=== PATIENT | female | born 1990 | race Caucasian/White ===

== ENCOUNTER 2021-07-02 07:45 | Emergency (ER) | payer BC, MEDICAID ==
[~2021-07-02] VITALS: Ht 157.5 cm; Wt 56.7 kg
[2021-07-02 07:45] VITALS: BP_SYST 106
[2021-07-02] MEDS ORDERED: KETOROLAC TROMETHAMINE 30 MG VIAL IVP ONE (08:00)
[2021-07-02] MEDS ORDERED: ONDANSETRON HCL 4 MG/2 ML VIAL IVP ONE (08:00)
[2021-07-02] MEDS ORDERED: MORPHINE 4 MG INJ. 4 MG/ML VIAL IVP ONE (08:00)
[2021-07-02] MEDS ORDERED: NACL 0.9% 1,000 ML IV ONE (08:00)
[2021-07-02 08:06] LABS: BASOPHILS % (AUTO) 0.5 % (0.0-2.0); EOSINOPHILS # (AUTO) 0.3 K/uL (0.0-0.4); HEMOGLOBIN 11.4 g/dL (12.0-16.0); LYMPHOCYTES # (AUTO) 2.6 K/uL (1.0-5.5); LYMPHOCYTES % (AUTO) 29.2 % (20.5-51.5); MEAN CORPUSCULAR HEMOGLOBIN 30 pg (27-31); MEAN CORPUSCULAR HGB CONC 34 % (32-36); MEAN CORPUSCULAR VOLUME 86 fL (79.0-98.0); MONOCYTES # (AUTO) 0.5 K/uL (0.0-1.0); MONOCYTES % (AUTO) 5.8 % (1.7-9.3); NEUTROPHILS # (AUTO) 5.3 K/uL (1.8-7.7); NEUTROPHILS % (AUTO) 60.5 % (40.0-70.0); PLATELET COUNT (AUTO) 234 K/uL (130-430); RED BLOOD CELL COUNT(AUTO) 3.85 MIL/uL (4.2-6.2); RED CELL DISTRIBUTION WIDTH 14.4 % (9.0-15.0); WHITE BLOOD COUNT (AUTO) 8.8 K/uL (4.8-10.8)
[2021-07-02 08:42] LABS: CREATININE 0.78 mg/dL (0.55-1.30); POTASSIUM 3.2 mmol/L (3.5-5.1)
[2021-07-02 08:53] LABS: ALBUMIN 3.8 g/dL (3.4-4.8); TOTAL BILIRUBIN 0.8 mg/dL (0.0-1.0)
[2021-07-02 10:51] LABS: BILIRUBIN,URINE NEGATIVE (NEGATIVE); BLOOD, URINE 3+ (NEGATIVE); CLARITY/URINE SL CLOUDY (CLEAR); COLOR,URINE YELLOW (YELLOW); GLUCOSE,URINE NEGATIVE (NEGATIVE); KETONES,URINE TRACE (NEGATIVE); LEUKOCYTE ESTERASE ,URINE 1+ (NEGATIVE); NITRITE, URINE POSITIVE (NEGATIVE); PH,URINE 5.5 (5.0-8.0); PROTEIN URINE TRACE (NEGATIVE); UROBILINOGEN,URINE 0.2 (0.2-1.0)
[2021-07-02 11:20] LABS: BACTERIA,URINE MANY /HPF (None Seen); MUCUS,URINE 1+ /LPF (None Seen); WBC,URINE 20-50 /HPF (0-3)
[2021-07-02] MEDS ORDERED: CEPH250C PO (11:20)
[2021-07-02] MEDS ORDERED: cephALEXin 500 MG CAPSULE PO ONE (11:30)
[2021-07-02 11:34] VITALS: BP_SYST 106
[2021-07-04 04:06] LABS: CHLAMYDIA TRACHOMATIS NAA Negative (Negative); NEISSERIA GONORRHOEAE NAA Negative (Negative)
== END 2021-07-02 11:35 | disposition home or self-care (01) ==
LOC: SED 07:45
DX: N39.0 Urinary tract infection, site not specified (principal); R10.31 Right lower quadrant pain; J45.909 Unspecified asthma, uncomplicated; Z79.899 Other long term (current) drug therapy
CPT/HCPCS: 36415; 74177; 76376; 80053; 81000; 81025; 83690; 84702; 85025; 87086; 87491; 87591; 96361; 96374; 96375; 99285; J1885; J2270; J2405; J7030; Q9967

== ENCOUNTER 2024-01-14 03:07 | Emergency (ER) | payer MEDICAID ==
[~2024-01-14] VITALS: Ht 160 cm; Wt 59.0 kg
[~2024-01-14 03:07] MED LIST: CEPH250C PO
[2024-01-14 03:10] VITALS: BP_SYST 145; PULSE 91; RESP 19; TEMP 98.2; O2SAT 100
[2024-01-14] MEDS: MORPHINE 2 MG/ML INJ. SYRINGE IVP ONE (04:10)
[2024-01-14 04:14] LABS: BASOPHILS # (AUTO) 0.1 K/uL (0.0-0.2); BASOPHILS % (AUTO) 0.6 % (0.0-2.0); EOSINOPHILS # (AUTO) 0.4 K/uL (0.0-0.4); EOSINOPHILS % (AUTO) 4.2 % (0.0-4.0); HEMATOCRIT 37.7 % (36-48); HEMOGLOBIN 12.6 g/dL (12.0-16.0); LYMPHOCYTES # (AUTO) 4.7 K/uL (1.0-5.5); LYMPHOCYTES % (AUTO) 47.4 % (20.5-51.5); MEAN CORPUSCULAR HEMOGLOBIN 29 pg (27-31); MEAN CORPUSCULAR HGB CONC 33 % (32-36); MEAN CORPUSCULAR VOLUME 87 fL (79.0-98.0); MONOCYTES # (AUTO) 0.6 K/uL (0.0-1.0); MONOCYTES % (AUTO) 6.4 % (1.7-9.3); NEUTROPHILS # (AUTO) 4.1 K/uL (1.8-7.7); NEUTROPHILS % (AUTO) 41.4 % (40.0-70.0); PLATELET COUNT (AUTO) 300 K/uL (130-430); RED BLOOD CELL COUNT(AUTO) 4.35 MIL/uL (4.2-6.2); RED CELL DISTRIBUTION WIDTH 14.5 % (9.0-15.0); WHITE BLOOD COUNT (AUTO) 9.9 K/uL (4.8-10.8)
[2024-01-14] MEDS: DIPHENHYDRAMINE INJ 50 MG/ML VIAL IVP ONE (04:15)
[2024-01-14 04:21] LABS: ANION GAP 9 (5-15); CALCIUM 8.8 mg/dL (8.4-11.0); CARBON DIOXIDE 26 mmol/L (23-29); CHLORIDE 106 mmol/L (98-107); CREATININE 0.67 mg/dL (0.55-1.30); GFR AFRICAN AMERICAN 130 mL/min (>90); GLUCOSE 128 mg/dL (74-106); POTASSIUM 3.8 mmol/L (3.5-5.1); SODIUM SERUM 141 mmol/L (136-145); UREA NITROGEN, BLOOD 16 mg/dL (8-21)
[2024-01-14] MEDS: FAMOTIDINE PF 20 MG/2 ML VIAL IVP ONE (04:21)
[2024-01-14] MEDS: METOCLOPRAMIDE HCL 10 MG/2 ML VIAL IVP ONE (04:21)
[2024-01-14 04:27] LABS: BILIRUBIN,URINE NEGATIVE (NEGATIVE); CLARITY/URINE CLEAR (CLEAR); COLOR,URINE YELLOW (YELLOW); GLUCOSE,URINE NEGATIVE (NEGATIVE); KETONES,URINE NEGATIVE (NEGATIVE); LEUKOCYTE ESTERASE ,URINE NEGATIVE (NEGATIVE); NITRITE, URINE NEGATIVE (NEGATIVE); PROTEIN URINE NEGATIVE (NEGATIVE); UROBILINOGEN,URINE 0.2 (0.2-1.0)
[2024-01-14 04:29] LABS: LIPASE 56 U/L (16-77)
[2024-01-14 04:30] LABS: GFR NON AFRICAN-AMERICAN 108 mL/min (>90)
[2024-01-14 04:31] LABS: BLOOD, URINE TRACE (NEGATIVE)
[2024-01-14] MEDS: NACL 0.9% 1,000 ML IV ONE (04:33)
[2024-01-14 04:38] LABS: BARBITURATE, URINE NEGATIVE (NEG <=200); BENZODIAZEPINE, URINE NEGATIVE (NEG <=150); CANNABINOID, URINE NEGATIVE (NEG <=50); COCAINE, URINE NEGATIVE (NEG <=150); METHAMPHETAMINES SCREEN,URINE NEGATIVE (NEG <=500); OPIATE, URINE NEGATIVE (NEG <=100); PHENCYCLIDINE SCREEN,URINE NEGATIVE (NEG <=25); UR TRICYCLIC ANTIDEPRESSANTS NEGATIVE (NEG <=300); URINE AMPHETAMINE NEGATIVE (NEG <=500); URINE METHADONE NEGATIVE (NEG <=200); URINE OXYCODONE SCREEN NEGATIVE (NEG <=100)
[2024-01-14] MEDS ORDERED: ANT30 PO (05:17)
[2024-01-14] MEDS ORDERED: ONDA-8 TL (05:17)
[2024-01-14] MEDS ORDERED: FAMO-132 PO (05:17)
[2024-01-14] MEDS ORDERED: PANT20TA2 PO (05:18)
[2024-01-14 05:29] LABS: BACTERIA,URINE RARE /HPF (None Seen)
[2024-01-14 05:42] VITALS: BP_SYST 138; PULSE 88; RESP 18; TEMP 98.3; O2SAT 100
== END 2024-01-14 05:42 | disposition home or self-care (01) ==
LOC: SED 03:07
DX: K21.9 Gastro-esophageal reflux disease without esophagitis (principal); R07.9 Chest pain, unspecified; R10.13 Epigastric pain; R11.2 Nausea with vomiting, unspecified; I10 Essential (primary) hypertension; J45.909 Unspecified asthma, uncomplicated; Z79.899 Other long term (current) drug therapy
CPT/HCPCS: 99285; 96374; 96375; 71046; 96361; 80307; 80048; 81000; 83880; 83690; 85025; 84484; 36415; 93005; 81025; 81001; 81015; J1200; J3490; J2765; J2270; J7030

== ENCOUNTER 2024-05-13 03:40 | Emergency (ER) | payer MEDICAID ==
[~2024-05-13] VITALS: Ht 157.5 cm; Wt 61.2 kg
[~2024-05-13 03:40] MED LIST changes: +ANT30 PO; +FAMO-132 PO; +ONDA-8 TL; +PANT20TA2 PO
[2024-05-13 03:52] VITALS: BP_SYST 104; PULSE 87; RESP 20; TEMP 98; O2SAT 98
[2024-05-13] MEDS ORDERED: LORazepam 2 MG/ML VIAL IVP ONE (04:45)
[2024-05-13] MEDS: KETOROLAC TROMETHAMINE 30 MG VIAL IVP ONE (05:08)
[2024-05-13] MEDS: ONDANSETRON HCL 4 MG/2 ML VIAL IVP ONE (05:08)
[2024-05-13 05:16] LABS: BASOPHILS % (AUTO) 0.3 % (0.0-2.0); EOSINOPHILS # (AUTO) 0.2 K/uL (0.0-0.4); EOSINOPHILS % (AUTO) 2.3 % (0.0-4.0); HEMATOCRIT 38.5 % (36-48); LYMPHOCYTES # (AUTO) 1.9 K/uL (1.0-5.5); LYMPHOCYTES % (AUTO) 19.7 % (20.5-51.5); MEAN CORPUSCULAR HEMOGLOBIN 29 pg (27-31); MEAN CORPUSCULAR HGB CONC 34 % (32-36); MEAN CORPUSCULAR VOLUME 85 fL (79.0-98.0); MONOCYTES # (AUTO) 0.4 K/uL (0.0-1.0); MONOCYTES % (AUTO) 4.1 % (1.7-9.3); NEUTROPHILS # (AUTO) 7.3 K/uL (1.8-7.7); NEUTROPHILS % (AUTO) 73.6 % (40.0-70.0); PLATELET COUNT (AUTO) 268 K/uL (130-430); RED BLOOD CELL COUNT(AUTO) 4.52 MIL/uL (4.2-6.2); RED CELL DISTRIBUTION WIDTH 15.7 % (9.0-15.0); WHITE BLOOD COUNT (AUTO) 9.9 K/uL (4.8-10.8)
[2024-05-13 05:38] LABS: ALANINE AMINOTRANSFERASE 17 U/L (12-78); ALBUMIN 3.8 g/dL (3.4-4.8); ANION GAP 10 (5-15); ASPARTATE AMINOTRANSFERASE 13 U/L (10-37); CALCIUM 9.4 mg/dL (8.4-11.0); CARBON DIOXIDE 27 mmol/L (23-29); CHLORIDE 103 mmol/L (98-107); CREATININE 0.75 mg/dL (0.55-1.30); GFR AFRICAN AMERICAN 114 mL/min (>90); GFR NON AFRICAN-AMERICAN 95 mL/min (>90); GLUCOSE 106 mg/dL (74-106); POTASSIUM 3.1 mmol/L (3.5-5.1); SODIUM SERUM 140 mmol/L (136-145); TOTAL BILIRUBIN 0.4 mg/dL (0.0-1.0); UREA NITROGEN, BLOOD 17 mg/dL (8-21)
[2024-05-13 05:41] LABS: BILIRUBIN,DIRECT < 0.1 mg/dL (0.0-0.3)
[2024-05-13 05:55] LABS: BILIRUBIN,URINE 1+ (NEGATIVE); BLOOD, URINE NEGATIVE (NEGATIVE); CLARITY/URINE SL CLOUDY (CLEAR); COLOR,URINE YELLOW (YELLOW); GLUCOSE,URINE NEGATIVE (NEGATIVE); KETONES,URINE 1+ (NEGATIVE); NITRITE, URINE POSITIVE (NEGATIVE); PROTEIN URINE NEGATIVE (NEGATIVE)
[2024-05-13] MEDS: NACL 0.9% 1,000 ML IV ONE (06:10)
[2024-05-13] MEDS: POTASSIUM CHLORIDE 20 MEQ TABLET.ER PO ONE (06:10)
[2024-05-13 06:14] LABS: LEUKOCYTE ESTERASE ,URINE 1+ (NEGATIVE)
[2024-05-13 06:15] LABS: BACTERIA,URINE MANY /HPF (None Seen); CALCIUM OXALATE CRYSTALS,UR 0-10 /HPF (None Seen); RBC,URINE 0-3 /HPF (0-3); WBC,URINE 20-50 /HPF (0-3)
[2024-05-13] MEDS ORDERED: IBUP-1971 PO (06:35)
[2024-05-13] MEDS ORDERED: HYDR-3917 PO (06:35)
[2024-05-13] MEDS ORDERED: NITR-85 PO (06:48)
[2024-05-13 06:54] VITALS: BP_SYST 104; PULSE 87; RESP 20; TEMP 98; O2SAT 98
== END 2024-05-13 06:52 | disposition home or self-care (01) ==
LOC: SED 03:40
DX: K80.20 Calculus of gallbladder without cholecystitis without obstruction (principal); R10.13 Epigastric pain; R07.89 Other chest pain; J45.909 Unspecified asthma, uncomplicated; F32.A Depression, unspecified; Z79.899 Other long term (current) drug therapy; Z79.2 Long term (current) use of antibiotics
CPT/HCPCS: 99285; 96374; 76705; 71045; 96361; 96375; 80076; 80048; 81001; 83880; 83690; 85025; 85379; 87086; 87186; 84484; 36415; 93005; 81025; J1885; J2405; J7030; 81000; 81015

== ENCOUNTER 2024-08-23 23:26 | Emergency (ER) | payer MEDICAID ==
[~2024-08-23] VITALS: Ht 160 cm; Wt 63.5 kg
[~2024-08-23 23:26] MED LIST changes: +HYDR-3917 PO; +IBUP-1971 PO; +NITR-85 PO
[2024-08-23 23:45] VITALS: BP_SYST 128; PULSE 74; RESP 20; TEMP 98; O2SAT 98
[2024-08-24 00:43] LABS: BASOPHILS # (AUTO) 0.2 K/uL (0.0-0.2); BASOPHILS % (AUTO) 1.7 % (0.0-2.0); EOSINOPHILS # (AUTO) 0.5 K/uL (0.0-0.4); EOSINOPHILS % (AUTO) 5.2 % (0.0-4.0); HEMATOCRIT 35.8 % (36-48); HEMOGLOBIN 12.2 g/dL (12.0-16.0); LYMPHOCYTES # (AUTO) 3.5 K/uL (1.0-5.5); LYMPHOCYTES % (AUTO) 34.2 % (20.5-51.5); MEAN CORPUSCULAR HEMOGLOBIN 29 pg (27-31); MEAN CORPUSCULAR HGB CONC 34 % (32-36); MEAN CORPUSCULAR VOLUME 84 fL (79.0-98.0); MONOCYTES # (AUTO) 0.5 K/uL (0.0-1.0); MONOCYTES % (AUTO) 4.8 % (1.7-9.3); NEUTROPHILS # (AUTO) 5.5 K/uL (1.8-7.7); NEUTROPHILS % (AUTO) 54.1 % (40.0-70.0); PLATELET COUNT (AUTO) 307 K/uL (130-430); RED BLOOD CELL COUNT(AUTO) 4.25 MIL/uL (4.2-6.2); RED CELL DISTRIBUTION WIDTH 14.6 % (9.0-15.0); WHITE BLOOD COUNT (AUTO) 10.2 K/uL (4.8-10.8)
[2024-08-24 00:49] LABS: ALBUMIN 3.9 g/dL (3.4-4.8); BILIRUBIN,DIRECT 0.1 mg/dL (0.0-0.3); CALCIUM 8.7 mg/dL (8.4-11.0); CREATININE 0.7 mg/dL (0.55-1.30); TOTAL BILIRUBIN 0.2 mg/dL (0.0-1.0); TOTAL PROTEIN, SERUM 7.1 g/dL (6.4-8.3)
[2024-08-25] MEDS ORDERED: HYDR-3917 PO (19:36)
[2024-08-25] MEDS ORDERED: ONDA-8 TL (19:36)
[2024-08-25] MEDS ORDERED: OMEP40CA20 PO (19:36)
== END 2024-08-24 00:34 | disposition left against medical advice (07) ==
LOC: SED 23:26
DX: R10.13 Epigastric pain (principal); R07.89 Other chest pain; Z53.21 Procedure and treatment not carried out due to patient leaving prior to being seen by health care provider
CPT/HCPCS: 36415; 80048; 80076; 81025; 83690; 84703; 85025

== ENCOUNTER 2024-08-25 18:01 | Emergency (ER) | payer MEDICAID ==
[~2024-08-25] VITALS: Ht 157.5 cm; Wt 63.5 kg
[2024-08-25 18:09] VITALS: BP_SYST 103; PULSE 95; RESP 16; TEMP 97.7; O2SAT 97
[2024-08-25] MEDS: NACL 0.9% 1,000 ML IV ONE (19:00)
[2024-08-25 19:06] LABS: BASOPHILS # (AUTO) 0.1 K/uL (0.0-0.2); BASOPHILS % (AUTO) 0.6 % (0.0-2.0); EOSINOPHILS # (AUTO) 0.4 K/uL (0.0-0.4); EOSINOPHILS % (AUTO) 4.3 % (0.0-4.0); HEMATOCRIT 38.7 % (36-48); HEMOGLOBIN 13.3 g/dL (12.0-16.0); LYMPHOCYTES # (AUTO) 3.1 K/uL (1.0-5.5); LYMPHOCYTES % (AUTO) 30.5 % (20.5-51.5); MEAN CORPUSCULAR HEMOGLOBIN 29 pg (27-31); MEAN CORPUSCULAR HGB CONC 34 % (32-36); MEAN CORPUSCULAR VOLUME 84 fL (79.0-98.0); MONOCYTES # (AUTO) 0.7 K/uL (0.0-1.0); MONOCYTES % (AUTO) 6.5 % (1.7-9.3); NEUTROPHILS # (AUTO) 5.9 K/uL (1.8-7.7); NEUTROPHILS % (AUTO) 58.1 % (40.0-70.0); PLATELET COUNT (AUTO) 330 K/uL (130-430); RED CELL DISTRIBUTION WIDTH 14.4 % (9.0-15.0); WHITE BLOOD COUNT (AUTO) 10.2 K/uL (4.8-10.8)
[2024-08-25 19:16] LABS: BILIRUBIN,URINE NEGATIVE (NEGATIVE); BLOOD, URINE NEGATIVE (NEGATIVE); CLARITY/URINE CLEAR (CLEAR); COLOR,URINE YELLOW (YELLOW); GLUCOSE,URINE NEGATIVE (NEGATIVE); KETONES,URINE NEGATIVE (NEGATIVE); LEUKOCYTE ESTERASE ,URINE NEGATIVE (NEGATIVE); NITRITE, URINE NEGATIVE (NEGATIVE); PROTEIN URINE NEGATIVE (NEGATIVE); UROBILINOGEN,URINE 0.2 (0.2-1.0)
[2024-08-25 19:16] LABS: ALBUMIN 3.6 g/dL (3.4-4.8); BILIRUBIN,DIRECT 0.1 mg/dL (0.0-0.3); CALCIUM 9.3 mg/dL (8.4-11.0); CREATININE 0.76 mg/dL (0.55-1.30); POTASSIUM 3.6 mmol/L (3.5-5.1); TOTAL BILIRUBIN 0.3 mg/dL (0.0-1.0); TOTAL PROTEIN, SERUM 7.9 g/dL (6.4-8.3)
[2024-08-25] MEDS: MORPHINE 2 MG/ML INJ. SYRINGE IVP ONE (19:21)
[2024-08-25] MEDS: ONDANSETRON HCL 4 MG/2 ML VIAL IVP ONE (19:21)
[2024-08-25] MEDS ORDERED: ONDA-8 TL (19:36)
[2024-08-25] MEDS ORDERED: HYDR-3917 PO (19:36)
[2024-08-25] MEDS ORDERED: OMEP40CA20 PO (19:36)
[2024-08-25] MEDS: KETOROLAC TROMETHAMINE 30 MG VIAL IVP ONE (20:00)
[2024-08-25 20:35] VITALS: BP_SYST 108; PULSE 93; RESP 18; TEMP 97.7; O2SAT 97
== END 2024-08-25 20:35 | disposition home or self-care (01) ==
LOC: SED 18:01
DX: K80.20 Calculus of gallbladder without cholecystitis without obstruction (principal); R10.13 Epigastric pain; J45.909 Unspecified asthma, uncomplicated; Z79.899 Other long term (current) drug therapy
CPT/HCPCS: 99284; 96374; 96375; 96361; 80076; 80048; 81001; 83690; 85025; 36415; 81003; J1885; J2405; J2270; J7030